=== PATIENT | female | born 1930 | race Caucasian/White ===

== ENCOUNTER → 2016-04-26 | Outpatient (CLI) | payer MEDICARE ==
[2016-04-26 17:24] LABS: BASOPHILS % (AUTO) 0 % (0-10); EOSINOPHILS # (AUTO) 0.2 10^3/uL (0.0-0.3); EOSINOPHILS % (AUTO) 1 % (0-10); LYMPHOCYTES # (AUTO) 6.1 X 10^3 (1.0-4.0); LYMPHOCYTES % (AUTO) 48 % (12-44); MEAN CORPUSCULAR HEMOGLOBIN 34 PG (25-34); MEAN CORPUSCULAR HGB CONC 34 G/DL (32-36); MEAN CORPUSCULAR VOLUME 99 FL (80-99); MONOCYTES # (AUTO) 0.9 X 10^3 (0.0-1.0); MONOCYTES % (AUTO) 7 % (0-12); NEUTROPHILS # (AUTO) 5.5 X 10^3 (1.8-7.8); NEUTROPHILS % (AUTO) 43 % (42-75); PLATELET COUNT 242 10^3/uL (130-400); RED BLOOD COUNT 3.86 10^6/uL (4.35-5.85); RED CELL DISTRIBUTION WIDTH 13.7 % (10.0-14.5); WHITE BLOOD COUNT 12.8 10^3/uL (4.3-11.0)
== END ==
LOC: LAB 16:54
PROVIDERS: ATTEND Internal Medicine
DX: R79.89 Other specified abnormal findings of blood chemistry (principal)
CPT/HCPCS: 36415; 85025

== ENCOUNTER → 2016-05-25 | Outpatient (CLI) | payer MEDICARE ==
--- OUTSIDE RECORDS SUMMARY | 2016-05-25 16:23 | XMS REPORT | Continuity of Care Document ---
Author Author [facility] Organization [facility] Address Unknown Phone Unavailable Allergies Medications Problems Date Dx Coded Attending Type Code Diagnosis Diagnosed By 04/01/2014 GREGORIO GARCIA MD Ot V76.12 03/14/2016 PAULA THOMAS APRN Ot Z13.0 ENCNTR SCREEN FOR DIS OF THE BLD/BLD- FOR 2016 PAULA THOMAS APRN Ot Z13.0 ENCNTR SCREEN FOR DIS OF THE BLD/BLD- FOR 04/27/2016 GREGORIO GARCIA MD Ot R79.89 OTHER SPECIFIED ABNORMAL FINDINGS OF BLO 05/18/2016 GREGORIO GARCIA MD Ot R79.89 OTHER SPECIFIED ABNORMAL FINDINGS OF BLO Procedures Results Test Result Range Blood CBC with ordered manual differential panel - 03/11/16 13:10 Blood leukocytes automated count (number/volume) 11.4 10*3/ uL 4.3-11.0 Blood erythrocytes automated count (number/volume) 4.18 10*6 /uL 4.35-5.85 Venous blood hemoglobin measurement (mass/volume) 14.1 g/dL 11.5-16.0 Blood hematocrit (volume fraction) 42 % 35-52 Automated erythrocyte mean corpuscular volume 99 [foz_us] 80-99 Automated erythrocyte mean corpuscular hemoglobin (mass per erythrocyte) 34 pg 25-34 Automated erythrocyte mean corpuscular hemoglobin concentration measurement ( mass/volume) 34 g/dL 32-36 Automated erythrocyte distribution width ratio 13.5 % 10.0-14.5 Automated blood platelet count (count/volume) 299 10*3/uL 130-400 Automated blood platelet mean volume measurement 9.7 [foz_us ] 7.4-10.4 Automated blood neutrophils/100 leukocytes 29 % 42-75 Automated blood lymphocytes/100 leukocytes 62 % 12-44 Blood monocytes/100 leukocytes 4 % NRG Automated blood eosinophils/100 leukocytes 1 % 0-10 Automated blood basophils/100 leukocytes 0 % 0-10 Blood neutrophils automated count (number/volume) 3.3 10*3 1.8-7.8 Blood lymphocytes automated count (number/volume) 7.1 10*3 1.0-4.0 Blood monocytes automated count (number/volume) 0.8 10*3 0.0-1.0 Automated eosinophil count 0.1 10*3/uL 0.0-0.3 Automated blood basophil count (count/volume) 0.0 10*3/uL 0.0-0.1 Manual blood segmented neutrophils/100 leukocytes 27 % NRG Blood band neutrophils/100 leukocytes 3 % NRG Manual blood lymphocytes/100 leukocytes 61 % NRG Manual eosinophils/100 leukocytes in nose 2 % NRG Manual blood basophils/100 leukocytes 0 % NRG Blood lymphocytes variant/100 leukocytes 3 % NRG Blood macrocytes detection by light microscopy SLIGHT NRG Automated reticulocyte percentage - 03/11/16 13:10 Blood reticulocytes count (number/volume) 40 10*9/L 24-90 Blood reticulocytes/100 erythrocytes 0.95 % 0.50-2.40 Complete blood count (CBC) with automated white blood cell (WBC) differential - 04/26/16 17:01 Blood leukocytes automated count (number/volume) 12.8 10*3/ uL 4.3-11.0 Blood erythrocytes automated count (number/volume) 3.86 10*6 /uL 4.35-5.85 Venous blood hemoglobin measurement (mass/volume) 13.1 g/dL 11.5-16.0 Blood hematocrit (volume fraction) 38 % 35-52 Automated erythrocyte mean corpuscular volume 99 [foz_us] 80-99 Automated erythrocyte mean corpuscular hemoglobin (mass per erythrocyte) 34 pg 25-34 Automated erythrocyte mean corpuscular hemoglobin concentration measurement ( mass/volume) 34 g/dL 32-36 Automated erythrocyte distribution width ratio 13.7 % 10.0-14.5 Automated blood platelet count (count/volume) 242 10*3/uL 130-400 Automated blood platelet mean volume measurement 11.0 [foz_ us] 7.4-10.4 Automated blood neutrophils/100 leukocytes 43 % 42-75 Automated blood lymphocytes/100 leukocytes 48 % 12-44 Blood monocytes/100 leukocytes 7 % 0-12 Automated blood eosinophils/100 leukocytes 1 % 0-10 Automated blood basophils/100 leukocytes 0 % 0-10 Blood neutrophils automated count (number/volume) 5.5 10*3 1.8-7.8 Blood lymphocytes automated count (number/volume) 6.1 10*3 1.0-4.0 Blood monocytes automated count (number/volume) 0.9 10*3 0.0-1.0 Automated eosinophil count 0.2 10*3/uL 0.0-0.3 Automated blood basophil count (count/volume) 0.0 10*3/uL 0.0-0.1 Encounters ACCT No. Visit Date/Time Discharge Status Pt. Type Provider Facility Loc./Unit Complaint [id number] 03/07/2014 14:05:00 2013 23:59:59 CLS Outpatient GREGORIO GARCIA MD [facility] RAD [id number] 04/19/2013 14:55:00 2013 15:13:00 DIS Outpatient [id number] 04/26/2016 16:54:00 ACT Outpatient GREGORIO GARCIA MD [facility] LAB RT9.89 [id number] 03/11/2016 12:56:00 ACT Outpatient PAULA THOMAS APRN [facility] LAB LEUKOCYTES
[2016-06-28 10:16] LABS: MP RPT # MP-17-0002902
== END ==
LOC: LAB 16:20
PROVIDERS: ATTEND Internal Medicine
DX: D72.89 Other specified disorders of white blood cells (principal)
CPT/HCPCS: 36415; 88184; 88185

== ENCOUNTER → 2016-06-20 | Outpatient (CLI) | payer MEDICARE ==
--- NOTE | 2016-06-20 15:14 | Diagnostic Imaging Report ---
CT scan of the neck, chest, and abdomen and pelvis performed without intravenous contrast. INDICATION: CLL. Elevated white count and low-grade fever. FINDINGS: CT neck: There is mucosal thickening in the dependent region of the left maxillary sinus. There is partial opacification in the left mastoid air cells. The parotid and submandibular glands appear symmetric. The thyroid gland is absent. Correlate for presumed prior thyroidectomy. The mucosal pharyngeal space demonstrates no definite mass. There is no significantly enlarged lymph node seen in the cervical stations on either side. The osseous structures demonstrate mild degenerative changes. CT chest: No axillary lymphadenopathy. No mediastinal mass or lymphadenopathy is seen. The heart size is normal. No pericardial effusion. No pleural effusion. The thoracic aorta is normal in caliber. There is no definite hilar mass demonstrated. The hilar vessels are not opacified decreasing sensitivity for detection of subtle hilar lymphadenopathy. There is suggestion of bibasilar scarring. No significant consolidation. There is S-shaped scoliosis in the thoracolumbar spine. CT abdomen and pelvis: The abdominal aorta is normal in caliber. No para-aortic significantly enlarged lymph node is seen. The kidneys demonstrate no hydronephrosis. No urinary tract stone seen. Pelvic calcifications are likely related to phleboliths. There is suggestion of prior hysterectomy. The appendix is normal. There is no bowel obstruction. The liver, the spleen, and the pancreas appear unremarkable. The adrenal glands demonstrate diffuse thickening bilaterally but more prominent on the left side which might relate to hyperplasia. Tiny fat-containing umbilical hernia is seen. The osseous structures demonstrate scoliosis with advanced degenerative changes. 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 IMPRESSION: 1. CT neck: No lymphadenopathy or soft tissue mass identified. There is partial opacification of the left mastoid air cells, could correlate with mastoiditis. 2. CT chest: No suspicious mass or lymphadenopathy. 3. CT abdomen and pelvis: Thickening in the adrenal glands mostly on the left side may relate to adrenal hyperplasia. No discrete nodule. No lymphadenopathy seen. Dictated by: Dictated on workstation # [id number]
== END ==
LOC: RAD 14:01
PROVIDERS: ATTEND Internal Medicine Hematology & Oncology
DX: C91.10 Chronic lymphocytic leukemia of B-cell type not having achieved remission (principal)
CPT/HCPCS: 70490; 71250; 74176

== ENCOUNTER 2016-07-04 13:42 | Outpatient (RCR) | payer MEDICARE ==
[2016-06-20 13:59] LABS: BASOPHILS % (AUTO) 0 % (0-10); EOSINOPHILS # (AUTO) 0.1 10^3/uL (0.0-0.3); EOSINOPHILS % (AUTO) 1 % (0-10); LYMPHOCYTES # (AUTO) 4.8 X 10^3 (1.0-4.0); LYMPHOCYTES % (AUTO) 50 % (12-44); MEAN CORPUSCULAR HEMOGLOBIN 33 PG (25-34); MEAN CORPUSCULAR HGB CONC 33 G/DL (32-36); MEAN CORPUSCULAR VOLUME 101 FL (80-99); MEAN PLATELET VOLUME 10.3 FL (7.4-10.4); MONOCYTES # (AUTO) 0.8 X 10^3 (0.0-1.0); MONOCYTES % (AUTO) 9 % (0-12); NEUTROPHILS # (AUTO) 3.8 X 10^3 (1.8-7.8); NEUTROPHILS % (AUTO) 39 % (42-75); PLATELET COUNT 232 10^3/uL (130-400); RED BLOOD COUNT 3.84 10^6/uL (4.35-5.85); RED CELL DISTRIBUTION WIDTH 13.5 % (10.0-14.5); WHITE BLOOD COUNT 9.6 10^3/uL (4.3-11.0)
[2016-06-20 14:24] LABS: ALBUMIN 3.8 G/DL (3.2-4.5); BILIRUBIN,TOTAL 0.3 MG/DL (0.1-1.0); CALCIUM 9.2 MG/DL (8.5-10.1); CREATININE SERUM 1.4 MG/DL (0.60-1.30); POTASSIUM 5.3 MMOL/L (3.6-5.0); TOTAL PROTEIN 6.6 G/DL (6.4-8.2)
[2016-06-24 07:52] LABS: B CELL CLL BY FISH SEE FOOTNOTE
== END 2016-09-18 | disposition home or self-care (01) ==
LOC: ONC 13:42
PROVIDERS: ATTEND Internal Medicine Hematology & Oncology
DX: C91.10 Chronic lymphocytic leukemia of B-cell type not having achieved remission (principal); N18.3 Chronic kidney disease, stage 3 (moderate); E78.00 Pure hypercholesterolemia, unspecified; E03.9 Hypothyroidism, unspecified; F17.210 Nicotine dependence, cigarettes, uncomplicated; Z79.899 Other long term (current) drug therapy
CPT/HCPCS: 36415; 80053; 85025; 88368; 88369; 99214

== ENCOUNTER → 2016-07-25 | Outpatient (CLI) | payer MEDICARE ==
--- NOTE | 2016-07-25 17:15 | Diagnostic Imaging Report ---
Bilateral screening mammogram The current study was also evaluated with a Computer Aided Detection (CAD) system. INDICATION: Screening. No current complaints stated on the questionnaire. COMPARISON: 03/07/2014. FINDINGS: The breasts are composed of scattered fibroglandular densities. Slightly more dense parenchyma is seen in the outer aspect of each breast with stable appearance from multiple prior exams. Multiple bilateral benign-appearing calcifications are seen. Allowing for technique and positional differences, no suspicious change is seen. IMPRESSION: No significant change. ACR BI-RADS Category 2: Benign findings. Result letter will be mailed to the patient. Note: At least 10% of breast cancer is not imaged by mammography. Dictated by: Dictated on workstation # [id number]
== END ==
LOC: RAD 15:01
PROVIDERS: ATTEND Nurse Practitioner
DX: Z12.31 Encounter for screening mammogram for malignant neoplasm of breast (principal)
CPT/HCPCS: 77067

== ENCOUNTER 2017-01-02 14:01 | Outpatient (RCR) | payer MEDICARE ==
[2017-01-02 14:20] LABS: BASOPHILS % (AUTO) 0 % (0-10); EOSINOPHILS # (AUTO) 0.1 10^3/uL (0.0-0.3); EOSINOPHILS % (AUTO) 1 % (0-10); HEMATOCRIT 40 % (35-52); HEMOGLOBIN 13.2 G/DL (11.5-16.0); LYMPHOCYTES # (AUTO) 5.4 X 10^3 (1.0-4.0); LYMPHOCYTES % (AUTO) 48 % (12-44); MEAN CORPUSCULAR HEMOGLOBIN 34 PG (25-34); MEAN CORPUSCULAR HGB CONC 33 G/DL (32-36); MEAN CORPUSCULAR VOLUME 102 FL (80-99); MEAN PLATELET VOLUME 9.9 FL (7.4-10.4); MONOCYTES # (AUTO) 0.9 X 10^3 (0.0-1.0); MONOCYTES % (AUTO) 8 % (0-12); NEUTROPHILS % (AUTO) 43 % (42-75); PLATELET COUNT 241 10^3/uL (130-400); RED CELL DISTRIBUTION WIDTH 13.6 % (10.0-14.5); WHITE BLOOD COUNT 11.4 10^3/uL (4.3-11.0)
[2017-01-02 14:44] LABS: ALBUMIN 3.8 GM/DL (3.2-4.5); BILIRUBIN,TOTAL 0.4 MG/DL (0.1-1.0); CALCIUM 8.9 MG/DL (8.5-10.1); CREATININE SERUM 1.15 MG/DL (0.60-1.30); POTASSIUM 4.7 MMOL/L (3.6-5.0); TOTAL PROTEIN 6.9 GM/DL (6.4-8.2)
== END 2017-04-02 | disposition home or self-care (01) ==
LOC: ONC 14:01
PROVIDERS: ATTEND Internal Medicine Hematology & Oncology
DX: C91.10 Chronic lymphocytic leukemia of B-cell type not having achieved remission (principal); N18.3 Chronic kidney disease, stage 3 (moderate); E78.00 Pure hypercholesterolemia, unspecified; E03.9 Hypothyroidism, unspecified; F17.210 Nicotine dependence, cigarettes, uncomplicated; Z79.899 Other long term (current) drug therapy
CPT/HCPCS: 36415; 80053; 83615; 85025; 99213

== ENCOUNTER 2017-07-07 14:11 | Outpatient (RCR) | payer MEDICARE ==
[2017-07-07 14:26] LABS: BASOPHILS % (AUTO) 0 % (0-10); EOSINOPHILS # (AUTO) 0.2 10^3/uL (0.0-0.3); EOSINOPHILS % (AUTO) 1 % (0-10); HEMATOCRIT 41 % (35-52); HEMOGLOBIN 13.7 G/DL (11.5-16.0); LYMPHOCYTES % (AUTO) 51 % (12-44); MEAN CORPUSCULAR HEMOGLOBIN 35 PG (25-34); MEAN CORPUSCULAR HGB CONC 34 G/DL (32-36); MEAN CORPUSCULAR VOLUME 105 FL (80-99); MEAN PLATELET VOLUME 9.9 FL (7.4-10.4); MONOCYTES # (AUTO) 0.8 X 10^3 (0.0-1.0); MONOCYTES % (AUTO) 7 % (0-12); NEUTROPHILS # (AUTO) 4.7 X 10^3 (1.8-7.8); NEUTROPHILS % (AUTO) 40 % (42-75); PLATELET COUNT 239 10^3/uL (130-400); RED BLOOD COUNT 3.87 10^6/uL (4.35-5.85); WHITE BLOOD COUNT 11.8 10^3/uL (4.3-11.0)
[2017-07-07 14:43] LABS: BILIRUBIN,TOTAL 0.6 MG/DL (0.1-1.0); CALCIUM 9.2 MG/DL (8.5-10.1); CREATININE SERUM 1.26 MG/DL (0.60-1.30); POTASSIUM 5.3 MMOL/L (3.6-5.0); TOTAL PROTEIN 7.1 GM/DL (6.4-8.2)
== END 2017-10-05 | disposition home or self-care (01) ==
LOC: ONC 14:11
PROVIDERS: ATTEND Internal Medicine Hematology & Oncology
DX: C91.10 Chronic lymphocytic leukemia of B-cell type not having achieved remission (principal); N18.3 Chronic kidney disease, stage 3 (moderate); E78.00 Pure hypercholesterolemia, unspecified; E03.9 Hypothyroidism, unspecified; F17.210 Nicotine dependence, cigarettes, uncomplicated; Z79.899 Other long term (current) drug therapy
CPT/HCPCS: 80053; 83615; 85025; 99213

== ENCOUNTER → 2017-08-10 | Outpatient (CLI) | payer MEDICARE ==
--- NOTE | 2017-08-11 19:43 | Diagnostic Imaging Report ---
INDICATION: Routine screening. Comparison is made with prior study from 07/25/2016 and 03/07/2014. 2-D and 3-D bilateral screening mammography was performed with CAD. The current study was also evaluated with a Computer Aided Detection (CAD) system. FINDINGS: Scattered fibroglandular densities are identified bilaterally. There are benign calcifications bilaterally. No mass or malignant-appearing microcalcifications are seen. The axillae are unremarkable. IMPRESSION: No mammographic features suspicious for malignancy are identified. ACR BI-RADS Category 2: Benign findings. Result letter will be mailed to the patient. Note: At least 10% of breast cancer is not imaged by mammography. Dictated by: Dictated on workstation # [id number]
== END ==
LOC: RAD 15:44
PROVIDERS: ATTEND Internal Medicine
DX: Z12.31 Encounter for screening mammogram for malignant neoplasm of breast (principal)
CPT/HCPCS: 77067

== ENCOUNTER 2018-01-11 14:45 | Outpatient (RCR) | payer MEDICARE ==
[2018-01-11 14:59] LABS: BASOPHILS % (AUTO) 0 % (0-10); EOSINOPHILS # (AUTO) 0.2 10^3/uL (0.0-0.3); EOSINOPHILS % (AUTO) 1 % (0-10); HEMATOCRIT 44 % (35-52); HEMOGLOBIN 14.7 G/DL (11.5-16.0); LYMPHOCYTES % (AUTO) 47 % (12-44); MEAN CORPUSCULAR HEMOGLOBIN 34 PG (25-34); MEAN CORPUSCULAR HGB CONC 34 G/DL (32-36); MEAN CORPUSCULAR VOLUME 100 FL (80-99); MEAN PLATELET VOLUME 10.2 FL (7.4-10.4); MONOCYTES # (AUTO) 0.9 X 10^3 (0.0-1.0); MONOCYTES % (AUTO) 7 % (0-12); NEUTROPHILS # (AUTO) 5.8 X 10^3 (1.8-7.8); NEUTROPHILS % (AUTO) 45 % (42-75); PLATELET COUNT 239 10^3/uL (130-400); RED BLOOD COUNT 4.36 10^6/uL (4.35-5.85); RED CELL DISTRIBUTION WIDTH 13.9 % (10.0-14.5); WHITE BLOOD COUNT 12.9 10^3/uL (4.3-11.0)
[2018-01-11 15:19] LABS: BILIRUBIN,TOTAL 0.6 MG/DL (0.1-1.0); CALCIUM 9.2 MG/DL (8.5-10.1); CREATININE SERUM 1.28 MG/DL (0.60-1.30); POTASSIUM 4.6 MMOL/L (3.6-5.0)
== END 2018-04-11 | disposition home or self-care (01) ==
LOC: ONC 14:45
PROVIDERS: ATTEND Internal Medicine Hematology & Oncology
DX: C91.10 Chronic lymphocytic leukemia of B-cell type not having achieved remission (principal); N18.3 Chronic kidney disease, stage 3 (moderate); E78.00 Pure hypercholesterolemia, unspecified; E03.9 Hypothyroidism, unspecified; F17.210 Nicotine dependence, cigarettes, uncomplicated; Z79.899 Other long term (current) drug therapy
CPT/HCPCS: 36415; 80053; 82607; 82746; 83615; 85025; 99213

== ENCOUNTER 2018-06-23 13:39 | Inpatient (IN) | payer MEDICARE ==
[~2018-06-23] VITALS: Ht 175.3 cm; Wt 66.7 kg
[2018-06-23 14:03] LABS: BASOPHILS % (AUTO) 0 % (0-10); EOSINOPHILS % (AUTO) 0 % (0-10); HEMATOCRIT 43 % (35-52); LYMPHOCYTES # (AUTO) 4.6 X 10^3 (1.0-4.0); LYMPHOCYTES % (AUTO) 36 % (12-44); MEAN CORPUSCULAR HEMOGLOBIN 36 PG (25-34); MEAN CORPUSCULAR HGB CONC 35 G/DL (32-36); MEAN CORPUSCULAR VOLUME 104 FL (80-99); MEAN PLATELET VOLUME 9.8 FL (7.4-10.4); MONOCYTES # (AUTO) 1.2 X 10^3 (0.0-1.0); MONOCYTES % (AUTO) 10 % (0-12); NEUTROPHILS # (AUTO) 6.8 X 10^3 (1.8-7.8); NEUTROPHILS % (AUTO) 54 % (42-75); PLATELET COUNT 220 10^3/uL (130-400); RED CELL DISTRIBUTION WIDTH 15.6 % (10.0-14.5); WHITE BLOOD COUNT 12.6 10^3/uL (4.3-11.0)
[2018-06-23 14:20] LABS: INR 0.9 (0.8-1.4); PROTHROMBIN TIME PATIENT 12.6 SEC (12.2-14.7)
[2018-06-23 14:22] LABS: ALANINE AMINOTRANSFERASE 13 U/L (0-55); ALBUMIN 3.8 GM/DL (3.2-4.5); ALKALINE PHOSPHATASE 132 U/L (40-136); BILIRUBIN,TOTAL 1.2 MG/DL (0.1-1.0); BUN/CREATININE RATIO 10; CALCIUM 9.4 MG/DL (8.5-10.1); CARBON DIOXIDE 19 MMOL/L (21-32); CHLORIDE 103 MMOL/L (98-107); CREATININE SERUM 1.21 MG/DL (0.60-1.30); GFR ESTIMATED 42; GLUCOSE 97 MG/DL (70-105); POTASSIUM 4.1 MMOL/L (3.6-5.0); SODIUM 138 MMOL/L (135-145); TOTAL PROTEIN 7.1 GM/DL (6.4-8.2)
[2018-06-23] MEDS ORDERED: NS IV 500 ML 500 ML IV ONE (14:31)
--- NOTE | 2018-06-23 14:34 | ED Lower Extremity ---
General Chief Complaint: Trauma-Non Activation Stated Complaint: FALL/L HIP PAIN Nursing Triage Note: TO ED PER EMS FROM HOME PER EMS THAT FAMILY TOLD THEM THAT SHE DRANK A GLASS OF WINE BEFORE SHE FELL FELL ON MON OR MONDAY. C/O PAIN IN L THIGH AND HIP AREA PATIENT HAS NO PAIN INLESS SHE MOVES .PATIENT GIVES POOR PMH Nursing Sepsis Screen: No Definite Risk History of Present Illness Date Seen by Provider: Jun 23, 2018 Time Seen by Provider: 13:42 Initial Comments 88-year-old female presents from EMS for left hip pain. She reports falling on 06/20/18. She was able to bear weight and had no complaints until today when the left hip became more painful. She denies any previous history of injuries to her left lower extremity. 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 Her son was at the home when she fell, he reports that she did not hit her head or have any other associated injuries. She normally ambulates with a cane. Onset: last week (06/20/18) Pain/Injury Location: left hip Method of Injury: fell (06/20/18) Modifying Factors: Improves With Rest Allergies and Home Medications Allergies Coded Allergies: No Known Drug Allergies (Unverified , 06/23/18) Patient Home Medication List Home Medication List Reviewed: Yes Review of Systems Constitutional: no symptoms reported, see HPI Musculoskeletal: see HPI, joint pain (left hip) All Other Systems Reviewed Negative Unless Noted: Yes Past Ceggksd-Uobgds-Kihaoy Hx Past Med/Social Hx: Reviewed Nursing Past Med/Soc Hx, Reviewed and Corrections made Patient Social History Alcohol Use: Occasionally Uses Recreational Drug Use: No Smoking Status: Current Everyday Smoker Type Used: Cigarettes Recent Foreign Travel: No Contact w/Someone Who Travel: No Recent Infectious Disease Expo: No Past Medical History Surgeries: Yes Hysterectomy Respiratory: No Cardiac: No Neurological: No Genitourinary: No Gastrointestinal: No Musculoskeletal: No Endocrine: No HEENT: No Cancer: Yes (CLL) Psychosocial: No Integumentary: No Physical Exam Vital Signs Vital Signs - First Documented 06/23/18 13:41 Temp 98.2 Pulse 79 Resp 18 B/P (MAP) 146/80 (102) Pulse Ox 97 Capillary Refill : Less Than 3 Seconds Height, Weight, BMI Height: 5'5.00" Weight: 145lbs. oz. 65.806171qd; BMI Method:Estimated General Appearance: WD/WN, no apparent distress HEENT: PERRL/EOMI, normal ENT inspection, TMs normal, pharynx normal Neck: non-tender, full range of motion, supple, normal inspection Cardiovascular: normal peripheral pulses, regular rate, rhythm Respiratory: lungs clear, normal breath sounds, no respiratory distress, other (left upper ribs tender to palpation, lateral side) Gastrointestinal: normal bowel sounds, non tender, soft Back: normal inspection, no vertebral tenderness Hips: right hip non-tender; bilateral hip normal inspection, bilateral hip normal range of motion, bilateral hip no evidence of injury; left hip bone tenderness (pelvis, posterior and anterior hip ), left hip pain, left hip soft tissue tenderness; bilateral hip other (full active and passive range of motion bilateral hips) Legs: bilateral leg non-tender, bilateral leg normal inspection, bilateral leg normal range of motion Knees: bilateral knee non-tender, bilateral knee normal inspection (incision anterior right knee, compatible with total knee replacement.) Ankles: bilateral ankle non-tender, bilateral ankle normal inspection, bilateral ankle normal range of motion Feet: bilateral foot non-tender, bilateral foot normal inspection, bilateral foot normal range of motion Neurologic/Tendon: normal sensation, normal motor functions, normal tendon functions Neurologic/Psychiatric: no motor/sensory deficits, alert, normal mood/affect, other (patient alert to person and place, states the years 2017. Repeatedly asked where her glasses are.) Skin: normal color, warm/dry Progress/Results/Core Measures Results/Orders Lab Results Laboratory Tests Test 06/23/18 13:54 Range/Units White Blood Count 12.6 H 4.3-11.0 10^3/uL Red Blood Count 4.16 L 4.35-5.85 10^6/uL Hemoglobin 15.0 11.5-16.0 G/DL Hematocrit 43 35-52 % Mean Corpuscular Volume 104 H 80-99 FL Mean Corpuscular Hemoglobin 36 H 25-34 PG Mean Corpuscular Hemoglobin Concent 35 32-36 G/DL Red Cell Distribution Width 15.6 H 10.0-14.5 % Platelet Count 220 130-400 10^3/uL Mean Platelet Volume 9.8 7.4-10.4 FL Neutrophils (%) (Auto) 54 42-75 % Lymphocytes (%) (Auto) 36 12-44 % Monocytes (%) (Auto) 10 0-12 % Eosinophils (%) (Auto) 0 0-10 % Basophils (%) (Auto) 0 0-10 % Neutrophils # (Auto) 6.8 1.8-7.8 X 10^3 Lymphocytes # (Auto) 4.6 H 1.0-4.0 X 10^3 Monocytes # (Auto) 1.2 H 0.0-1.0 X 10^3 Eosinophils # (Auto) 0.0 0.0-0.3 10^3/uL Basophils # (Auto) 0.0 0.0-0.1 10^3/uL Prothrombin Time 12.6 12.2-14.7 SEC INR Comment 0.9 0.8-1.4 Activated Partial Thromboplast Time 27 24-35 SEC Sodium Level 138 135-145 MMOL/L Potassium Level 4.1 3.6-5.0 MMOL/L Chloride Level 103 98-107 MMOL/L Carbon Dioxide Level 19 L 21-32 MMOL/L Anion Gap 16 H 5-14 MMOL/L Blood Urea Nitrogen 12 7-18 MG/DL Creatinine 1.21 0.60-1.30 MG/DL Estimat Glomerular Filtration Rate 42 BUN/Creatinine Ratio 10 Glucose Level 97 70-105 MG/DL Calcium Level 9.4 8.5-10.1 MG/DL Corrected Calcium 9.6 8.5-10.1 MG/DL Total Bilirubin 1.2 H 0.1-1.0 MG/DL Aspartate Amino Transf (AST/SGOT) 21 5-34 U/L Alanine Aminotransferase (ALT/SGPT) 13 0-55 U/L Alkaline Phosphatase 132 40-136 U/L Total Protein 7.1 6.4-8.2 GM/DL Albumin 3.8 3.2-4.5 GM/DL Serum Alcohol < 10 <10 MG/DL My Orders Orders - TAMAR SALDANA [employer] Pelvis With Left Hip 2-3 Views (06/23/18 13:40) Alcohol (06/23/18 13:46) Cbc With Automated Diff (06/23/18 13:46) Comprehensive Metabolic Panel (06/23/18 13:46) Drug Screen Stat (Urine) (06/23/18 13:46) Protime With Inr (06/23/18 13:46) Partial Thromboplastin Time (06/23/18 13:46) Ua Culture If Indicated (06/23/18 13:46) Ct Pelvis Wo (06/23/18 14:13) Saline Lock/Iv-Start (06/23/18 14:31) Ns Iv 500 Ml (Sodium Chloride 0.9%) (06/23/18 14:31) Hydrocodone/Apap 5/325 Tablet (Lortab 5 (06/23/18 15:00) Medications Given in ED Current Medications Medications Dose Ordered Sig/Tricia Route Start Time Stop Time Status Last Admin Dose Admin Sodium Chloride 500 ml @ 0 mls/hr Q0M ONCE IV 06/23/18 14:31 06/23/18 14:32 DC 06/23/18 14:53 500 MLS/HR Vital Signs/I&O 06/23/18 13:41 Temp 98.2 Pulse 79 Resp 18 B/P (MAP) 146/80 (102) Pulse Ox 97 Blood Pressure Mean: 102 Progress Progress Note : Time: 13:42 Progress Note Patient seen and evaluated, will obtain x-ray of the pelvis and left hip. Will obtain labs and UA. 1405 x-ray of the pelvis shows superior and inferior pubic rami fractures, will obtain CT of the pelvis. 1445 discussed results of x-ray and CT with the patient and her sons. They understand these findings. Will give hydrocodone/APAP 5/325 mg for pain. Labs essentially normal, awaiting UA. [address] Parker, accepted patient for observation. Consulted Dr. Dean for fx. 1515 Dr. Dean present in ED to assess patient. 1535 patient complaining of left rib pain, full range of motion to the left shoulder. Tenderness to palpation along the left lateral upper ribs. Will obtain a chest x-ray and left rib films. 1600 nondisplaced fracture in the ninth rib on the left. Findings discussed with the patient and her sons. Possible nodule from scarring or mass on the right lung base. New finding. Discussed with Dr. Parker, CT chest with contrast ordered, will be done from the floor. Pt transferred to 4th floor. Diagnostic Imaging Diagonstic Imaging: CT Plain Films/CT/US/NM/MRI: pelvis Comments NAME: JOSE SHORT [facility] REC#: [id number] PT STATUS: REG ER : 1930 PHYSICIAN: TAMAR SALDANA ADMIT DATE: 06/23/18/ER Draft Date of Exam:06/23/18 CT PELVIS WO PROCEDURE: CT pelvis without contrast. TECHNIQUE: Multiple contiguous axial images were obtained through the pelvis without the use of intravenous contrast. Sagittal and coronal reformations were performed. Auto Exposure Controls were utilized during the CT exam to meet ALARA standards for radiation dose reduction. INDICATION: Fall, pain. COMPARISON: Imaging from the same date as well as from 06/20/2016. FINDINGS: The sacrum and visualized lumbar spine appears intact with scattered degenerative changes. The sacroiliac joints appear intact. No right-sided pelvic fractures are seen. Mild degenerative changes of the right hip. Acute fracturing of the medial aspect of the left superior and inferior pubic rami are identified. Fracture planes do extend into the pubic symphysis. Fractures are not significantly displaced. The left femur is intact. Mild degenerative changes of the left hip with associated left acetabular protrusio. No significant free fluid within the lower pelvis. Mild intramuscular hematoma and swelling within the left abductor musculature. Probable small left hip joint effusion. No evidence of avascular necrosis of the femoral heads. IMPRESSION: 1. Acute mildly comminuted, not significantly displaced fracturing of the left superior and inferior pubic rami with extension to the pubic symphysis. 2. Edema and intramuscular hematoma associated with the left abductor musculature. 3. Scattered degenerative changes. 4. Additional findings as described above. Report given to STEPHANIE Altamirano, at 2:50 p.m. 06/23/2018/dinesh Dictated on workstation # [id number] Reviewed: Reviewed by Pr Diagonstic Imaging: Xray Plain Films/CT/US/NM/MRI: pelvis, hip Comments NAME: JOSE SHORT [facility] REC#: [id number] PT STATUS: REG ER : 1930 PHYSICIAN: TAMAR SALDANA ADMIT DATE: 06/23/18/ER Draft Date of Exam:06/23/18 PELVIS WITH LEFT HIP 2-3 VIEWS INDICATION: Fall, pain. COMPARISON: 06/20/2016 TECHNIQUE: Three radiographs of the pelvis and left hip dated 06/23/2018. FINDINGS: Royal left curvature of the spine partially visualized. Mild degenerative changes within the visualized lumbar spine. Left acetabular protrusio is present. Fractures involving the medial aspect of the left superior and inferior pubic rami are identified, appearing recent and acute. No additional acute fracture. No dislocation. No destructive osseous process. The pubic symphysis is intact. Mild degenerative changes of bilateral hips. IMPRESSION: 1. Acute left superior and inferior pubic rami fractures. 2. Scattered degenerative changes and acetabular protrusio of the left hip. Report given to STEPHANIE Altamirano at 2:50 P.M. 06/23/2018/dinesh Dictated on workstation # [id number] Dict: 06/23/18 1418 Trans: 06/23/18 1451 [facility] [id number] Interpreted by: DUARTE GILES MD Electronically signed by: Reviewed: Reviewed by Me Diagonstic Imaging: Xray Plain Films/CT/US/NM/MRI: chest, other (ribs) Comments JUNI: JOSE SHORT [facility] REC#: [id number] PT STATUS: ADM Cinda : 1930 PHYSICIAN: TAMAR SALDANA ADMIT DATE: 06/23/18/4TH Draft Date of Exam:06/23/18 RIBS/UNILATERAL WITH CHEST INDICATION: Left rib pain after fall. COMPARISON: 06/20/2016. TECHNIQUE: Four radiographs of the chest and left-sided ribs dated June 23, 2018. FINDINGS: The cardiac silhouette is within normal limits in size. No significant pulmonary vascular congestion. 2 cm nodular densities are identified overlying the right lung base. Otherwise, the right lung is clear. The left lung is clear of focal pulmonary opacity. No significant pleural effusion. No pneumothorax. Royal right curvature of the thoracic spine. Acute very minimally displaced lateral left ninth rib fracture. No additional displaced or healing rib fracture is seen. IMPRESSION: 1. Acute minimally displaced lateral left ninth rib fracture. No significant pleural effusion or pneumothorax. 2. There is a 2.1 cm nodular density overlying the right lung base. Although it is favored that this relates to parenchymal scarring, pulmonary nodule/neoplasm is not excluded. Therefore, recommend a CT of the chest for further evaluation. Report was called to Tamar Saldana APRN in the [place] [facility] ER at 3:41 p.m., by luis alberto. Dictated on workstation # [id number] Dict: 06/23/18 1532 Trans: 06/23/18 1543 [facility] ALBERTO [id number] Interpreted by: DUARTE GILES MD Electronically signed by: Reviewed: Reviewed by Me Departure Impression Primary Impression: Fracture of superior ramus of left pubis Qualified Codes: S32.512A - Fracture of superior rim of left pubis, initial encounter for closed fracture Additional Impressions: Fracture of left inferior pubic ramus Qualified Codes: S32.592A - Other specified fracture of left pubis, initial encounter for closed fracture Confusion Fall Qualified Codes: W19.XXXA - Unspecified fall, initial encounter Left rib fracture Qualified Codes: S22.32XA - Fracture of one rib, left side, initial encounter for closed fracture Disposition: ADMITTED INPATIENT Condition: Stable Admissions Decision to Admit Reason: Admit from ER (General) Decision to Admit/Date: Jun 23, 2018 Time/Decision to Admit Time: 15:00 Departure-Patient Inst. Referrals: GREGORIO GARCIA MD (PCP/Family) Primary Care Physician Copy Copies To 1: OLGA RAMIREZ DO; GREOGRIO GARCIA MD Copies To 2: MARYAM BLEDSOE AMY ARNP Jun 23, 2018 14:34
--- NOTE | 2018-06-23 14:50 | Diagnostic Imaging Report ---
INDICATION: Fall, pain. COMPARISON: 06/20/2016 TECHNIQUE: Three radiographs of the pelvis and left hip dated 06/23/2018. FINDINGS: [place] left curvature of the spine partially visualized. Mild degenerative changes within the visualized lumbar spine. Left acetabular protrusio is present. Fractures involving the medial aspect of the left superior and inferior pubic rami are identified, appearing recent and acute. No additional acute fracture. No dislocation. No destructive osseous process. The pubic symphysis is intact. Mild degenerative changes of bilateral hips. IMPRESSION: 1. Acute left superior and inferior pubic rami fractures. 2. Scattered degenerative changes and acetabular protrusio of the left hip. Report given to STEPHANIE Altamirano at 2:50 P.M. 06/23/2018/dinesh Dictated by: Dictated on workstation # [id number]
--- NOTE | 2018-06-23 14:50 | Diagnostic Imaging Report ---
PROCEDURE: CT pelvis without contrast. TECHNIQUE: Multiple contiguous axial images were obtained through the pelvis without the use of intravenous contrast. Sagittal and coronal reformations were performed. Auto Exposure Controls were utilized during the CT exam to meet ALARA standards for radiation dose reduction. INDICATION: Fall, pain. COMPARISON: Imaging from the same date as well as from 06/20/2016. FINDINGS: The sacrum and visualized lumbar spine appears intact with scattered degenerative changes. The sacroiliac joints appear intact. No right-sided pelvic fractures are seen. Mild degenerative changes of the right hip. Acute fracturing of the medial aspect of the left superior and inferior pubic rami are identified. Fracture planes do extend into the pubic symphysis. Fractures are not significantly displaced. The left femur is intact. Mild degenerative changes of the left hip with associated left acetabular protrusio. No significant free fluid within the lower pelvis. Mild intramuscular hematoma and swelling within the left abductor musculature. Probable small left hip joint effusion. No evidence of avascular necrosis of the femoral heads. IMPRESSION: 1. Acute mildly comminuted, not significantly displaced fracturing of the left superior and inferior pubic rami with extension to the pubic symphysis. 2. Edema and intramuscular hematoma associated with the left adductor musculature. 3. Scattered degenerative changes. 4. Additional findings as described above. Report given to STEPHANIE Altamirano, at 2:50 p.m. 06/23/2018/dinesh Dictated by: Dictated on workstation # [id number]
[2018-06-23] MEDS ORDERED: HYDROcodone/APAP 5 MG/325 MG (LORTAB) TAB PO ONE (15:00)
[2018-06-23] MEDS ORDERED: BENADRYL (15:10)
[2018-06-23] MEDS ORDERED: MELATONIN (15:12)
--- NOTE | 2018-06-23 15:17 | NUR ---
BACK TO X RAY PATIENT C/O NOW L RIB PAIN . NO BRUISNG NOTED
--- NOTE | 2018-06-23 15:29 | Consultation ---
History of Present Illness History of Present Illness Patient Consulted On(raad/time) 06/23/18 15:25 Time Seen by Provider: 15:10 Reason for Visit: Hip pain History of Present Illness 88 y/o white female, fell at home a few days ago and has left hip pain, discomfort to stand. Denies any other injuries. Son's are present for history and exam. Allergies and Home Medications Allergies Coded Allergies: No Known Drug Allergies (Unverified , 06/23/18) Patient Home Medication List Home Medication List Reviewed: Yes Past Hlgekkr-Mzixjt-Uewsav Hx Patient Social History Alcohol Use: Past History Recreational Drug Use: No Smoking Status: Current Everyday Smoker Type Used: Cigarettes Recent Foreign Travel: No Contact w/Someone Who Travel: No Recent Infectious Disease Expo: No Past Medical History Surgeries: Yes Hysterectomy Respiratory: No Cardiac: Yes Hypertension Neurological: No Genitourinary: No Gastrointestinal: No Musculoskeletal: No Endocrine: Yes Hypothyroidsim HEENT: No Cancer: No Psychosocial: No Integumentary: No Review of Systems-General Constitutional: no symptoms reported EENTM: no symptoms reported Respiratory: no symptoms reported Cardiovascular: chest pain Gastrointestinal: no symptoms reported Genitourinary: no symptoms reported Musculoskeletal: joint pain Skin: no symptoms reported Psychiatric/Neurological: No Symptoms Reported Physical Exam-General Problems Physical Exam Vital Signs Vital Signs - First Documented 06/23/18 13:41 Temp 98.2 Pulse 79 Resp 18 B/P (MAP) 146/80 (102) Pulse Ox 97 Capillary Refill : Less Than 3 Seconds General Appearance: no apparent distress Neck: non-tender, full range of motion, supple, normal inspection Respiratory: chest non-tender, no respiratory distress, no accessory muscle use Cardiovascular: normal peripheral pulses Gastrointestinal: non tender, soft Rectal: deferred Back: no CVA tenderness, no vertebral tenderness Extremities: other (hip pain and pelvic tenderness) Neurologic/Psychiatric: no motor/sensory deficits, alert, normal mood/affect Skin: normal color Lymphatic: no adenopathy Comments Xrays/CT demonstrate, non-displaced left pubic rami fractures, inferior/ superior. 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 Assessment/Plan Assessment/Plan Admission Status: Observation Reason for Inpatient Admission: Left closed pubic rami fractures Left hip OA Fall RADHA KINGSLEY MD Jun 23, 2018 15:29
[2018-06-23 15:42] LABS: BILIRUBIN,URINE NEGATIVE (NEGATIVE); CLARITY,URINE SLIGHTLY CLOUDY; COLOR,URINE YELLOW; GLUCOSE, URINE (UA) NEGATIVE (NEGATIVE); KETONES,URINE 1+ (NEGATIVE); LEUKOCYTE ESTERASE ,URINE 2+ (NEGATIVE); NITRITE,URINE POSITIVE (NEGATIVE); PH,URINE 6.5 (5-9); PROTEIN,URINE NEGATIVE (NEGATIVE); UROBILINOGEN,URINE NORMAL (NORMAL)
--- NOTE | 2018-06-23 15:43 | Diagnostic Imaging Report ---
INDICATION: Left rib pain after fall. COMPARISON: 06/20/2016. TECHNIQUE: Four radiographs of the chest and left-sided ribs dated June 23, 2018. FINDINGS: The cardiac silhouette is within normal limits in size. No significant pulmonary vascular congestion. 2 cm nodular densities are identified overlying the right lung base. Otherwise, the right lung is clear. The left lung is clear of focal pulmonary opacity. No significant pleural effusion. No pneumothorax. [place] right curvature of the thoracic spine. Acute very minimally displaced lateral left ninth rib fracture. No additional displaced or healing rib fracture is seen. IMPRESSION: 1. Acute minimally displaced lateral left ninth rib fracture. No significant pleural effusion or pneumothorax. 2. There is a 2.1 cm nodular density overlying the right lung base. Although it is favored that this relates to parenchymal scarring, pulmonary nodule/neoplasm is not excluded. Therefore, recommend a CT of the chest for further evaluation. Report was called to Tamar Isaac APRN in the [facility] ER at 3:41 p.m., by cindy. Dictated by: Dictated on workstation # [id number]
[2018-06-23 15:47] LABS: BACTERIA,URINE LARGE /HPF; RBC,URINE RARE /HPF
--- NOTE | 2018-06-23 15:49 | NUR ---
CALLED TO GIVE REPORT NURSE DID NOT ANSWER PHONE.
[2018-06-23 15:55] LABS: AMPHETAMINE SCREEN, URINE NEGATIVE (NEGATIVE); BARBITURATE SCREEN URINE NEGATIVE (NEGATIVE); BENZODIAZEPINES SCREEN URINE NEGATIVE (NEGATIVE); CANNABINOID SCREEN, URINE NEGATIVE (NEGATIVE); COCAINE SCREEN URINE NEGATIVE (NEGATIVE); METHADONE STAT NEGATIVE (NEGATIVE); METHAMPHETAMINE SCREEN URINE S NEGATIVE (NEGATIVE); OPIATE SCREEN URINE NEGATIVE (NEGATIVE); OXYCODONE STAT NEGATIVE (NEGATIVE); PROPOXYPHENE STAT NEGATIVE (NEGATIVE); TRICYCLIC ANTIDEPRESSANTS SCRE NEGATIVE (NEGATIVE)
[2018-06-23] MEDS ORDERED: CATHETER FLUSH 10 ML SYR IV PRN ×2 (16:30→16:45)
[2018-06-23] MEDS ORDERED: IBUPROFEN 600 MG (MOTRIN) TAB PO PRN (16:30)
[2018-06-23 16:42] VITALS: BP 117/56
[2018-06-23] MEDS ORDERED: HOLD METFORMIN - RECEIVED CONTRAST 20 ML VIAL IV SCH (16:45)
[2018-06-23] MEDS ORDERED: IOHEXOL 350 MG/ML 100 ML (OMNIPAQUE 350) VIAL IV ONE (16:45)
--- NOTE | 2018-06-23 17:14 | Diagnostic Imaging Report ---
PROCEDURE: CT chest with contrast only. TECHNIQUE: Multiple contiguous axial images were obtained through the chest after administration of intravenous contrast. Auto Exposure Controls were utilized during the CT exam to meet ALARA standards for radiation dose reduction. INDICATION: Abnormal chest x-ray. Right lung density. FINDINGS: There is a combination of linear and triangular densities seen within the right midlung which represents linear atelectasis. A focal mass is not seen. There is some discoid atelectasis seen at the lung bases as well. There is no effusion or pneumothorax. There is no mediastinal mass or hemorrhage. There is no acute bony abnormality. IMPRESSION: There is discoid atelectasis present bilaterally. No suspicious mass is seen. Dictated by: Dictated on workstation # [id number]
[2018-06-23 18:00] VITALS: BP 107/63
[2018-06-23 19:33] VITALS: BP 107/63
[2018-06-23] MEDS: CATHETER FLUSH 10 ML SYR IV SCH (21:00)
[2018-06-24] VITALS: BP 133/63
[2018-06-24] MEDS: HYDROcodone/APAP 5 MG/325 MG (LORTAB) TAB PO PRN (00:31)
[2018-06-24] MEDS: ZOLPIDEM 5 MG (AMBIEN) TAB PO SCH ×2 (02:08→21:18)
--- NOTE | 2018-06-24 02:08 | NUR ---
PT WANTED TO WAIT TO TAKE HER AMBIEN UNTIL SHE WAS READY TO GO TO SLEEP. TOOK AT 0208 AM THIS MORNING.
[2018-06-24 04:00] VITALS: BP 149/72
[2018-06-24] MEDS: CATHETER FLUSH 10 ML SYR IV SCH ×3 (06:01→22:07)
[2018-06-24 08:00] VITALS: BP 151/66
[2018-06-24] MEDS: ASPIRIN 81 MG CHEW (CHILDREN'S ASA) PO SCH (08:41)
[2018-06-24 12:00] VITALS: BP 117/60
[2018-06-24] MEDS ORDERED: cefTRIAXone FOR IV USE 1,000 MG in WATER (STERILE) FOR INJECTION 10 ML IV SCH (12:15)
--- NOTE | 2018-06-24 12:18 | History & Physical-Hospitalist ---
History of Present Illness HPI/Chief Complaint Pt is an 88yoCF with a PMH of HTN who presented to the ER after a fall a few days ago with hip pain. She is somewhat confused and thus history is limited. SHe believes she fell and was able to get around but hten yesterday her pain worsened and she was unable to get out of bed. She was worried she would have to go to the bathroom in her bed so called her son to bring her to the ER. She was found to have a pubis ramus fracture and is admitted for pain management and therapy. Today she states she is feeling better and thinking more clearly but believes she is a little confused still. Source: patient Date Seen 06/24/18 Time Seen by a Provider: 12:12 Attending Physician Hattie Parker MD PCP Evgeny Miles MD Referring Physician Date of Admission Jun 23, 2018 at 14:50 Home Medications & Allergies Home Medications Reviewed patient Home Medication Reconciliation performed by pharmacy medication reconciliations two way radio technician and/or nursing. Patients Allergies have been reviewed. Allergies Allergies Coded Allergies No Known Drug Allergies (Unverified06/23/18) Past Xwbrcnl-Zkpuok-Lmpnkm Hx Past Med/Social Hx: Reviewed Nursing Past Med/Soc Hx, Reviewed and Corrections made Patient Social History Alcohol Use: Past History Recreational Drug Use: No Smoking Status: Current Everyday Smoker Type Used: Cigarettes Recent Foreign Travel: No Contact w/other who traveled: No Recent Infectious Disease Expo: No Immunizations Up To Date Date of Influenza Vaccine: Jan 02, 2018 Past Medical History Surgeries: Hysterectomy Cardiac: Hypertension Endocrine: Hypothyroidsim Review of Systems Constitutional: No chills, No fever EENTM: no symptoms reported Respiratory: no symptoms reported Cardiovascular: no symptoms reported Gastrointestinal: no symptoms reported Genitourinary: no symptoms reported Musculoskeletal: see HPI, joint pain Skin: no symptoms reported Psychiatric/Neurological: No Symptoms Reported Physical Exam Physical Exam Vital Signs Vital Signs - First Documented 06/23/18 06/23/18 13:41 16:10 Temp 98.2 Pulse 79 Resp 18 B/P (MAP) 146/80 (102) Pulse Ox 97 O2 Delivery Room Air Capillary Refill : Less Than 3 SecondsLess Than 3 Seconds Height, Weight, BMI Height: 5'9.00" Weight: 147lbs. 0.0oz. 66.903205sy; 21.7 BMI Method:Estimated General Appearance: No Apparent Distress, WD/WN HEENT: PERRL/EOMI, Moist Mucous Membranes; No Scleral Icterus (L), No Scleral Icterus (R) Respiratory: Lungs Clear, No Accessory Muscle Use, No Respiratory Distress Cardiovascular: Regular Rate, Rhythm, No JVD, No Murmur Gastrointestinal: Normal Bowel Sounds, Non Tender, Soft Extremity: Normal Capillary Refill, No Calf Tenderness, No Pedal Edema Neurologic/Psychiatric: Alert, Oriented x3, Normal Mood/Affect Skin: Normal Color, Warm/Dry Results Results/Procedures Labs Laboratory Tests 06/23/18 13:54 Patient resulted labs reviewed. Imaging: Reviewed Imaging Report Assessment/Plan Admission Diagnosis Pubic ramus fx Admission Status: Inpatient Order (span 2 midnights) Reason for Inpatient Admission: need orthopedic eval, PT/OT Diagnosis/Problems Diagnosis/Problems (1) Fracture of superior ramus of left pubis Status: Acute Assessment & Plan: ortho consulted, appreciate recs PT consulted Consider IRU vs SNF placement pending PT evaluation Hydrocodone for pain Qualifiers: Encounter type: initial encounter Fracture type: closed Qualified Codes: S32.512A - Fracture of superior rim of left pubis, initial encounter for closed fracture (2) UTI (urinary tract infection) Status: Acute Assessment & Plan: May be contributing to confusion Start rocephin Not sepsis Await cultures Qualifiers: Urinary tract infection type: acute cystitis Hematuria presence: without hematuria Qualified Codes: N30.00 - Acute cystitis without hematuria (3) Essential (primary) hypertension Assessment & Plan: Mildly elevated Took herself off BP meds trend (4) Left rib fracture Status: Acute Assessment & Plan: Hydrocodone for pain IS ordered Qualifiers: Encounter type: initial encounter Rib fracture type: single rib Fracture type: closed Qualified Codes: S22.32XA - Fracture of one rib, left side, initial encounter for closed fracture Clinical Quality Measures DVT/VTE Risk/Contraindication: Risk Factor Score Per Nursin RFS Level Per Nursing on Admit: 4+=Very High HATTIE PARKER MD Jun 24, 2018 12:17
[2018-06-24] MEDS ORDERED: ENOXAPARIN 40 MG/0.4 ML (LOVENOX) SYR SC SCH (12:30)
[2018-06-24 16:25] VITALS: BP 147/65
[2018-06-24 20:18] VITALS: BP 149/68
--- NOTE | 2018-06-24 21:33 | NUR ---
PT IS BECOMING INCREASINGLY CONFUSED AND UPSET. THIS RN CALLED DR ARMIJO AND RECEIVED AND ORDER FOR ATIVAN 1MG PO Q6H PRN.
[2018-06-24] MEDS ORDERED: LORazepam 1 MG (ATIVAN) TAB ONE (21:36)
[2018-06-24] MEDS ORDERED: LORazepam 1 MG (ATIVAN) TAB PO PRN (21:45)
[2018-06-25] VITALS: BP 140/59
[2018-06-25] MEDS: CATHETER FLUSH 10 ML SYR IV SCH (05:47)
[2018-06-25 08:00] VITALS: BP 150/69
[2018-06-25] MEDS: ASPIRIN 81 MG CHEW (CHILDREN'S ASA) PO SCH (08:53)
[2018-06-25] MEDS: HYDROcodone/APAP 5 MG/325 MG (LORTAB) TAB PO PRN (08:53)
--- NOTE | 2018-06-25 09:23 | Physical Therapy Evaluation ---
PT Evaluation-General Medical Diagnosis Admission Date Jun 24, 2018 at 14:51 Medical Diagnosis: left pubic rami fracture Onset Date: Jun 20, 2018 Therapy Diagnosis Therapy Diagnosis: debility Height/Weight Height (Feet): 5 Height (Inches): 9.00 Weight (Pounds): 147 Weight (Ounces): 0.0 Precautions Precautions/Isolations: Fall Prevention Weight Bear Status Right Lower Extremity: Right Full Weight Bearing Left Lower Extremity: Left Partial Weight Bearing Referral Physician: Keith Reason for Referral: Evaluation/Treatment Medical History Pertinent Medical History: Dementia, HTN, Smoking Additional Medical History right TKR Current History patient fell several days ago and was able to ambulate without difficulty. Increase left LE pain resulting in EMS called due to patient's inability to weight bear left LE. Reviewed History: Yes Social History Home: Single Level Current Living Status: Other Family Prior/[facility] Prior Level of Function Therapy Code Descriptions/Definitions Functional Anna Measure: 0=Not Assessed/NA 4=Minimal Assistance 1=Total Assistance 5=Supervision or Setup 2=Maximal Assistance 6=Modified Anna 3=Moderate Assistance 7=Complete Anna Therapy Quality Codes: 6 Independent with activity with or without an assistive device 5 Patient requires set up or clean up by helper. Patient completes activity by themselves 4 Supervision or touching assist (CGA). [place] provide cues , steadying assist 3 The helper provides less than half the effort to complete the activity 2 The helper provides more than half the effort to complete the activity 1 Dependent. The helper does all the effort to complete an activity 7 Patient refused to complete or attempt activity 9 The patient did not perform the activity before the current illness or injury 88 Not attempted due to Medical conditions or safety concerns Functional Abilities and Goals: Independent: Patient completed the activities by him/herself, with or without an assistive device, with no assistance from a helper. Needed Some Help: Patient needed partial assistance from another person to complete activities. Dependent: A helper completed the activities for the patient. Unknown: Not Applicable: Bed Mobility: 6 Transfers (B,C,W/C) (FIM): 6 Gait: 6 Indoor Mobility (Ambulation): Independent Stairs: Independent Prior Devices Use: Walker (4WW) PT Evaluation-Current Subjective Patient reluctantly agrees to PT. 10/10 left pelvic pain FLACC Pain Numeric Pain Scale: 10-Worst Possible Pain Location: Left Location Body Site: Pelvic Pain Description: Acute Objective Patient Orientation: Confused Problem Solving: Poor ROM/Strength ROM Lower Extremities bilateral LE WFL Strength Lower Extremities left 3-/5 grossly/right LE 4-/5 grossly Integumentary/Posture Integumentary refer to nursing notes Bowel Incontinence: No Bladder Incontinence: No Posture WFL Neuromuscular (Tone, Coordination, Reflexes) grossly intact Sensory Vision: Wears Glasses Hearing: Functional Sensation Right Lower Extremit: Intact Sensation Left Lower Extremity: Intact Transfers Therapy Code Descriptions/Definitions Functional Anna Measure: 0=Not Assessed/NA 4=Minimal Assistance 1=Total Assistance 5=Supervision or Setup 2=Maximal Assistance 6=Modified Anna 3=Moderate Assistance 7=Complete Anna Transfers (B, C, W/C) (FIM): 2 Scootin Rollin Supine to/from Sit: 2 Sit to/from Stand: 3 patient is very resistive with all mobility due to left pelvic pain Gait Mode of Locomotion: Walk Anticipated Mode of Locomotion: Walk Gait (FIM): 1 Distance (FIM): 1=up to 49 ft Distance: 30' Gait Level of Assist: 4 Gait Persons Needed: 1 Gait Assistive Device: FWW Comments/Gait Description PWB left LE with FWW use Balance Sitting Static: Fair Sitting Dynamic: Fair Standing Static: Fair Standing Dynamic: Fair Assessment/Needs 88 y.o. female, will benefit from skilled PT to address functional strength and mobility to improve current LOF. From a PT standpoint, patient will benefit from extended care facility to allow proper healing of pelvic fracture before returning to home. Rehab Potential: Fair Post Rehab Potential-Barriers: compliance PT Usp Goals Usp Goals PT Assembly Cleaner Goals Time Frame: Jul 14, 2018 Transfers (B,C,W/C) (FIM): 5 Gait (FIM): 2 Gait distance (FIM): 2=240-89 ft Distance: 100' Gait Level of Assist: 5 Gait Assistive Device: FWW PT Plan Problem List Problem List: Activity Tolerance, Functional Strength, Safety, Balance, Gait, Transfer, Bed Mobility Treatment/Plan Treatment Plan: Continue Plan of Care Treatment Plan: Bed Mobility, Education, Functional Activity [place], Functional Strength, Gait, Safety, Therapeutic Exercise, Transfers Treatment Duration: Jul 14, 2018 Frequency: 11 times per week Estimated Hrs Per Day: .5 hour per day Patient and/or Family Agrees t: Yes Discharge Recommendations Therapy D/C Recommendations: Half-Way Placement, Correction (TCU/NH) Time/GCodes Time In: 815 Time Out: 833 Total Billed Treatment Time: 18 Total Billed Treatment 1 visit [employer] 18 min CAROLYN SINGER PT Jun 25, 2018 09:23
--- NOTE | 2018-06-25 10:44 | Progress Note-Hospitalist ---
Progress Note Progress Notes/Assess & Plan Date Seen 06/25/18 Time Seen by Provider: 10:40 Assessment & Plan The patient is an 88-year-old white female well-known to me. 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 She fell at home several days prior to presenting to the emergency room on Monday. She had been able to walk in the days early after the fall but by the date of presentation to the emergency room was unable to walk or get out of bed because of pain. She was found to have a left pubic ramus fracture. Physical exam: She did not recognize me until prompted. Lungs are clear to auscultation. CV is regular. She reports she is walking short distances and is eager to get back to her home. She feels that she is somewhat confused and would be better at home. She has 3 sons in town and apparently one who lives with her. Impression: Fracture left pubic ramus. 2. Gait instability secondary to number 1. 3.mild to moderate confusion Plan: Explore discharge today. MAGDI MARTINEZ MD Jun 25, 2018 10:44
--- NOTE | 2018-06-25 10:45 | NUR ---
IRF Evaluation: Order received to evaluate patient for the ARU. Chart reviewed and it has been determined the patient would not be able to tolerate intensity of therapy provided, at this time. CM/SS notified. Thank you for this referral.
[2018-06-25] MEDS ORDERED: MELA5CAP PO (10:47)
[2018-06-25] MEDS ORDERED: DIPH25CA79 PO (10:47)
--- NOTE | 2018-06-25 10:47 | NUR ---
SPOKE WITH THE PATIENT ABOUT HER MEDICATIONS. SHE WAS UNABLE TO TELL ME ANY MEDS SHE IS CURRENTLY TAKING BUT STATES SHE USES [facility] AND DR. GARCIA'S OFFICE. SHE STATES HE SON GAVIN HELPS HER WITH HER MEDICATIONS. I CALLED AND SPOKE WITH GAVIN, HE STATES HE GAVE HER MED LIST TO THE ED HOWEVER THERE IS NOTHING ON THE CHART OR SCANNED IN ON THE CHART AT THIS TIME. HE STATES THE LIST WAS NOT GIVEN BACK TO HIM IN THE ED BUT HE REMEMBERS LISINOPRIL AND PRAVASTATIN BEING ON IT. HE STATES HIS MOM IS BETWEEN DOCTORS AT THIS TIME BECAUSE SHE GOT MAD AT DR. GARCIA FOR NOT REFILLING HER TEMAZEPAM. GAVIN STATES THE PATIENT HAS BEEN OFF HER PRESCRIPTIONS MEDS FOR SOME TIME DUE TO NOT BEING ABLE TO GET THE PRESCRIBED FOR REFILLS. SHE IS TAKING MELATONIN AND BENADRYL OTC FOR SLEEP. [facility] HAS NOT FILLED ANYTHING FOR HER SINCE DECEMBER 2017 AND NO RECENTLY FILLED MEDICATIONS SHOWED IN [facility]. I JUST PUT THE OTC SLEEP AIDS ON HER MED REC FOR NOW.
[2018-06-25] MEDS ORDERED: ACHD5005 PO (11:24)
[2018-06-25] MEDS ORDERED: CEFD300C3 PO (11:28)
--- NOTE | 2018-06-25 11:29 | NUR ---
Met with pt to discuss continued care plans. 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 She states two sons live with her and assist in her care. Did contact her son Cesar who does live with her and assists as he can as he also has a chronic back condition. Cesar feels he can provide her care and states that she won't do well if she remains hospitalized due to her confusion. He states he has a wheelchair and walker at home and has no need for equipment. Will follow for any post hospital needs.
--- NOTE | 2018-06-25 12:23 | D/C HH Face to Face Order ---
D/C Face to Face Orders Instructions for Patient Via [facility], Patient Instructions/FollowUp: See other set Physician to follow Patient: Ginger Discharge Diet for Home: Regular Diet Patient Data-Allergies,Ht & Wt Patient Allergies: Coded Allergies: No Known Drug Allergies (Unverified , 06/23/18) Height (Feet): 5 Height (Inches): 9.00 Weight (Pounds): 147 Weight (Ounces): 0.0 Home Health Need/Face to Face Date of Face to Face: Jun 25, 2018 Clinical Findings: Generalized weakness and fatigue, Pain with ambulation, Unsteady gait, Other-list in note (left pubic ramus fracture. Urinary tract infection. Increased confusion.) I have seen Pt [id number]: Yes Discharged To: Home Diagnosis/Conditions: Left pubic ramus fracture. 2.urinary tract infection. 3.increased confusion. Patient is Homebound due to: CognItive deficits, Jefferson fall risk due to instabilty, Pain w/ambulation Homebound Status Due to the above stated illness, injury or surgical procedure (medical condition or diagnosis) and associated clinical findings, the patient is homebound because of his/her inability to leave home except with aid of a supportive device and/or person AND leaving the home requires a considerable and taxing effort or is medically contraindicated. y Pt req the following assistanc: Walker Home Health Nursing Orders Home Health Services Order: Nursing Services, Physical Therapy-Evaluate & Treat Home Health Infusion Therapy Line Start Date: Jun 23, 2018 Line Start Time: 1345 Line Type: Saline Lock Therapy Orders Therapy Orders: Physical Therapy Therapy Specific Orders: Increase strength/endurance Certify Stmt I certify that this patient is under my care and that I, a nurse practitioner or a physician; a assistant at surgery working with me, had a face to face encounter that - meets the physician face to face encounter requirements with this patient as dated. MAGDI Brunner MD Jun 25, 2018 12:23
--- NOTE | 2018-06-25 13:36 | Physical Therapy Daily Note ---
PT Daily Note-Current Subjective Patient and family agree to PT. Family report she is going home on this date and will have home health. Pain Numeric Pain Scale: 8 Location: Left Location Body Site: Pelvic Pain Description: Acute Mental Status Patient Orientation: Confused Transfers Therapy Code Descriptions/Definitions Functional [place] Measure: 0=Not Assessed/NA 4=Minimal Assistance 1=Total Assistance 5=Supervision or Setup 2=Maximal Assistance 6=Modified [place] 3=Moderate Assistance 7=Complete [place] Therapy Quality Codes: 6 Independent with activity with or without an assistive device 5 Patient requires set up or clean up by helper. Patient completes activity by themselves 4 Supervision or touching assist (CGA). [place] provide cues , steadying assist 3 The helper provides less than half the effort to complete the activity 2 The helper provides more than half the effort to complete the activity 1 Dependent. The helper does all the effort to complete an activity 7 Patient refused to complete or attempt activity 9 The patient did not perform the activity before the current illness or injury 88 Not attempted due to Medical conditions or safety concerns Transfers (B, C, W/C) (FIM): 4 Scootin Sit to/from Stand: 4 CGA for safety Weight Bearing Right Lower Extremity: Right Full Weight Bearing Left Lower Extremity: Left Partial Weight Bearing Gait Training Gait (FIM): 4 Distance (FIM): 3=150 ft Distance: 180' Gait Level of Assist: 4 Gait Persons Needed: 1 Gait Assistive Device: FWW CGA for safety due to left LE pain/very slow, antalgic gait sequence with frequent standing recovery periods due to pain. Assessment Patient returned to chair with needs met. This PT concerned with dismissal plan due to patient appears to be unable to care for self and will rely on family (sons) for care, mobility, ADL's, toileting, etc. SW notified. PT Correction Goals Wool Puller Goals PT Correction Goals Time Frame: Jul 14, 2018 Transfers (B,C,W/C) (FIM): 5 Gait (FIM): 2 Gait distance (FIM): 6=204-29 ft Distance: 100' Gait Level of Assist: 5 Gait Assistive Device: FWW PT Plan Treatment/Plan Treatment Plan: Discontinue PT Treatment Plan: Bed Mobility, Education, Functional Activity [place], Functional Strength, Gait, Safety, Therapeutic Exercise, Transfers Treatment Duration: Jul 14, 2018 Frequency: 11 times per week Estimated Hrs Per Day: .5 hour per day Patient and/or Family Agrees t: Yes Time/GCodes Time In: 1255 Time Out: 1318 Total Billed Treatment Time: 23 Total Billed Treatment 1 visit GT x 2 23 min CAROLYN SINGER PT Jun 25, 2018 13:36
--- NOTE | 2018-06-25 15:20 | NUR ---
Pt signed Choice form for for [facility] for fpc and physcial therapy Pt lives with her two sons and acknowledges confusion but states she will be much better at home.
== END 2018-06-25 14:15 | disposition home health service (06) | DRG 536 ==
LOC: EDUNIT# 13:39 → ER 13:40 → 4TH 14:50 → OBSVTOIN 06-24 14:51
PROVIDERS: ADMIT Family Medicine; ATTEND Family Medicine
DX: S32.502A Unspecified fracture of left pubis, initial encounter for closed fracture (principal); S22.32XA Fracture of one rib, left side, initial encounter for closed fracture; C91.10 Chronic lymphocytic leukemia of B-cell type not having achieved remission; N30.00 Acute cystitis without hematuria; R41.0 Disorientation, unspecified; R26.81 Unsteadiness on feet; M16.12 Unilateral primary osteoarthritis, left hip; I10 Essential (primary) hypertension; E03.9 Hypothyroidism, unspecified; F17.210 Nicotine dependence, cigarettes, uncomplicated; W19.XXXA Unspecified fall, initial encounter
CPT/HCPCS: 36415; 71101; 71260; 72192; 80053; 80306; 80320; 81000; 85025; 85610; 85730; 87077; 87088; 87186; 94664; G0378

== ENCOUNTER 2018-07-12 14:49 | Outpatient (RCR) | payer MEDICARE ==
[~2018-07-12 14:49] MED LIST: ACHD5005 PO; BENADRYL; CEFD300C3 PO; DIPH25CA79 PO; MELA5CAP PO; MELATONIN
[2018-07-12 15:03] LABS: BASOPHILS % (AUTO) 0 % (0-10); EOSINOPHILS # (AUTO) 0.1 10^3/uL (0.0-0.3); EOSINOPHILS % (AUTO) 1 % (0-10); HEMATOCRIT 40 % (35-52); HEMOGLOBIN 13.2 G/DL (11.5-16.0); LYMPHOCYTES # (AUTO) 4.2 X 10^3 (1.0-4.0); LYMPHOCYTES % (AUTO) 42 % (12-44); MEAN CORPUSCULAR HEMOGLOBIN 35 PG (25-34); MEAN CORPUSCULAR HGB CONC 33 G/DL (32-36); MEAN CORPUSCULAR VOLUME 107 FL (80-99); MEAN PLATELET VOLUME 9.8 FL (7.4-10.4); MONOCYTES % (AUTO) 10 % (0-12); NEUTROPHILS # (AUTO) 4.6 X 10^3 (1.8-7.8); NEUTROPHILS % (AUTO) 47 % (42-75); PLATELET COUNT 340 10^3/uL (130-400); WHITE BLOOD COUNT 9.9 10^3/uL (4.3-11.0)
[2018-07-12 15:26] LABS: ALBUMIN 3.9 GM/DL (3.2-4.5); BILIRUBIN,TOTAL 0.4 MG/DL (0.1-1.0); POTASSIUM 4.2 MMOL/L (3.6-5.0); TOTAL PROTEIN 6.6 GM/DL (6.4-8.2)
== END 2018-10-10 | disposition home or self-care (01) ==
LOC: ONC 14:49
PROVIDERS: ATTEND Internal Medicine Hematology & Oncology
DX: C91.10 Chronic lymphocytic leukemia of B-cell type not having achieved remission (principal); N18.3 Chronic kidney disease, stage 3 (moderate); E78.00 Pure hypercholesterolemia, unspecified; E03.9 Hypothyroidism, unspecified; F17.210 Nicotine dependence, cigarettes, uncomplicated; Z79.899 Other long term (current) drug therapy
CPT/HCPCS: 36415; 80053; 83615; 85025; 99213

== ENCOUNTER → 2019-08-13 | Outpatient (CLI) | payer MEDICARE ==
[2019-08-13 15:08] LABS: BASOPHILS % (AUTO) 0 % (0-10); EOSINOPHILS # (AUTO) 0.1 10^3/uL (0.0-0.3); EOSINOPHILS % (AUTO) 1 % (0-10); HEMATOCRIT 42 % (35-52); HEMOGLOBIN 13.9 G/DL (11.5-16.0); LYMPHOCYTES # (AUTO) 6.3 X 10^3 (1.0-4.0); LYMPHOCYTES % (AUTO) 48 % (12-44); MEAN CORPUSCULAR HEMOGLOBIN 35 PG (25-34); MEAN CORPUSCULAR HGB CONC 33 G/DL (32-36); MEAN CORPUSCULAR VOLUME 105 FL (80-99); MEAN PLATELET VOLUME 10.4 FL (7.4-10.4); MONOCYTES # (AUTO) 0.9 X 10^3 (0.0-1.0); MONOCYTES % (AUTO) 7 % (0-12); NEUTROPHILS # (AUTO) 5.7 X 10^3 (1.8-7.8); NEUTROPHILS % (AUTO) 44 % (42-75); PLATELET COUNT 245 10^3/uL (130-400); RED CELL DISTRIBUTION WIDTH 12.9 % (10.0-14.5); WHITE BLOOD COUNT 13.1 10^3/uL (4.3-11.0)
[2019-08-13 15:37] LABS: ALBUMIN 4.1 GM/DL (3.2-4.5); BILIRUBIN,TOTAL 0.3 MG/DL (0.1-1.0); CALCIUM 9.2 MG/DL (8.5-10.1); CREATININE SERUM 1.24 MG/DL (0.60-1.30); POTASSIUM 4.8 MMOL/L (3.6-5.0); TOTAL PROTEIN 7.1 GM/DL (6.4-8.2)
== END ==
LOC: EDSTATUS 13:17 → ONC 14:50
PROVIDERS: ATTEND Internal Medicine Hematology & Oncology
DX: C91.10 Chronic lymphocytic leukemia of B-cell type not having achieved remission (principal); N18.3 Chronic kidney disease, stage 3 (moderate); S32.9XXA Fracture of unspecified parts of lumbosacral spine and pelvis, initial encounter for closed fracture; S22.42XA Multiple fractures of ribs, left side, initial encounter for closed fracture; W19.XXXA Unspecified fall, initial encounter
CPT/HCPCS: 80053; 85025; 99213

== ENCOUNTER → 2020-08-11 | Outpatient (CLI) | payer MEDICARE ==
[2020-08-11 15:00] LABS: BASOPHILS # (AUTO) 0.1 10^3/uL (0.0-0.1); BASOPHILS % (AUTO) 0 % (0-10); EOSINOPHILS # (AUTO) 0.1 10^3/uL (0.0-0.3); EOSINOPHILS % (AUTO) 1 % (0-10); HEMATOCRIT 42 % (35-52); HEMOGLOBIN 14.2 g/dL (11.5-16.0); LYMPHOCYTES # (AUTO) 6.7 10^3/uL (1.0-4.0); LYMPHOCYTES % (AUTO) 47 % (12-44); MEAN CORPUSCULAR HEMOGLOBIN 35 pg (25-34); MEAN CORPUSCULAR HGB CONC 34 g/dL (32-36); MEAN CORPUSCULAR VOLUME 104 fL (80-99); MEAN PLATELET VOLUME 10.2 fL (9.0-12.2); MONOCYTES # (AUTO) 0.9 10^3/uL (0.0-1.0); MONOCYTES % (AUTO) 7 % (0-12); NEUTROPHILS # (AUTO) 6.3 10^3/uL (1.8-7.8); NEUTROPHILS % (AUTO) 45 % (42-75); PLATELET COUNT 297 10^3/uL (130-400); WHITE BLOOD COUNT 14.2 10^3/uL (4.3-11.0)
[2020-08-11 15:14] LABS: BILIRUBIN,TOTAL 0.4 MG/DL (0.1-1.0); CALCIUM 9.5 MG/DL (8.5-10.1); CREATININE SERUM 1.62 MG/DL (0.60-1.30); POTASSIUM 4.8 MMOL/L (3.6-5.0); TOTAL PROTEIN 7.1 GM/DL (6.4-8.2)
== END ==
LOC: ONC 14:46
PROVIDERS: ATTEND Internal Medicine Hematology & Oncology
DX: C91.10 Chronic lymphocytic leukemia of B-cell type not having achieved remission (principal); N18.30 Chronic kidney disease, stage 3 unspecified
CPT/HCPCS: 80053; 83615; 85025; G0463; 99213